=== PATIENT | male | born 1960 | race Asian ===

== ENCOUNTER 2020-11-02 21:20 | Emergency (ER) | payer SELFPAY ==
[~2020-11-02] VITALS: Ht 172.7 cm; Wt 72.0 kg
[2020-11-02] MEDS ORDERED: DIPH,PERTUSS(ACELL),TET VAC/PF 0.5 ML IM-VACC ONE ×2 (22:30→23:50)
[2020-11-02] MEDS ORDERED: LIDOCAINE 1%, 10ML INFIL ONE (22:30)
--- NOTE | 2020-11-02 23:20 | NUR ---
MANAGER FUND: PT. TO ROOM FROM LOBBY AT THIS TIME.
[2020-11-02 23:54] VITALS: BP 158/104
[2020-11-02] MEDS ORDERED: LIDOCAINE-MPF 1%, 5ML ONE (23:58)
[2020-11-03] MEDS ORDERED: BACITRACIN ZINC OINT 500U/GM, 0.9 GM ONE (00:13)
== END 2020-11-03 00:41 | disposition home or self-care (01) ==
LOC: ED 23:50
DX: S81.812A Laceration without foreign body, left lower leg, initial encounter (principal); F17.200 Nicotine dependence, unspecified, uncomplicated; W22.8XXA Striking against or struck by other objects, initial encounter; Y93.89 Activity, other specified; Y92.009 Unspecified place in unspecified non-institutional (private) residence as the place of occurrence of the external cause; Y99.8 Other external cause status
CPT/HCPCS: 12032; 90471; 90715; 99284